=== PATIENT | female | born 1995 | race Two or more races ===

== ENCOUNTER 2024-11-15 21:30 | Emergency (ER) | payer MEDICAID, SELFPAY ==
--- NOTE | 2024-11-15 21:56 | PD.EDADULT ---
ED General RME/HPI General Chief complaint: Headache Stated complaint: HEADACHE, N/V Time Seen by Provider: 11/15/24 21:42 Arrival date/time: 11/15/24 21:30 RME / HPI RME / HPI narrative: see MDM Related Data Allergies Allergy/AdvReac Type Severity Reaction Status Date / Time No Known Allergies Allergy Verified 03/08/22 06:38 Review of Systems Review of Systems Systems Reviewed: All systems reviewed, normal except as documented ED Exam Narrative Physical exam: Physical Exam GENERAL: NAD, AAOx3, obese HEENT: Moist mucosa. Eyes open, symmetrical, & clear CARDIO: Heart RRR, no obvious murmurs PULM: No noted coughing/dyspnea CTA B/L, no R/W/R GI: Abdomen soft, nondistended, no pain on palpation. BSx4 SKIN/MSK/EXT: No wounds/rashes/edema/amputations, no pain on palpation. Pedal pulses present B/L NEURO: AAOx3, no focal neuro deficits, able to move all 4 extremities Course Course Course Narrative: 2199 ordered CBC, CMP, 1L NS ordered Quality Measures none Orders Category Date Time Status EKG (ED ONLY) *Do not use* NOW Care 11/15/24 22:03 Completed Insert IV NOW Care 11/15/24 21:53 Active EKG (ED Only) Stat Exams 11/15/24 22:03 Draft CBC [CBC] Stat Lab 11/15/24 22:25 Completed CMP [Comprehensive Metabolic Panel] Stat Lab 11/15/24 22:25 Completed Sodium Chloride 0.9% 1000 ml [Ns] 1,000 ml Med 11/15/24 21:53 Discontinued IV 999 mls/hr Vital Signs Vital signs: Vital Signs Temperature 98.0 F 11/15/24 22:08 Pulse Rate 73 11/15/24 22:08 Respiratory Rate 16 11/15/24 22:08 Blood Pressure 147/92 H 11/15/24 22:08 Pulse Oximetry (%) 98 11/15/24 22:08 Oxygen Delivery Method Room Air 11/15/24 22:08 Discharge Plan Plan Patient Disposition: HOME (Self Care) Prescriptions/Referrals Referrals: No Primary/Family,Physician [Primary Care Provider] - In 1 week Problem List Clinical Impression: Dehydration Patient/Caregiver Discharge Instructions Additional Instructions: Follow up with your PCP within 1 week of discharge Should any symptoms recur or worsen patient is instructed to return to the ED. Print Language: Mauritian Stand Alone Forms: [facility] Info., Patient Portal Info Letter MDM Narrative MDM hospital course: 29 y/o F with PMHx of pre-diabetes who presented to the ED due to new onset headaches. She describes them as frontal but later moved to occipital area rated as a 9/10. She endorses 4x episodes of nonbloody vomiting mostly food contents and saliva at this point. She states she has tried paracetamol twice, ibuprofen and diclofenac with no relief. She also states that she started her period today with the onset of the headaches as well as some chills. She denies fever, shortness of breath, dizziness, loss of conciousness, abdominal pain, recent travel, sick contacts. Labs ordered, IVF bolus orededred IVF administered states feeling relief of symptoms and no further complaints Patient feeels comfortable going home. All questions and concerns answered patients is safe to discharge. Clinical Information Provided by patient Medical Records Reviewed None Meds/Rx Considered, not Ordered None Labs/Rad/Tests considered, not Ordered None Chronic Illness/Social Conditions which may negatively complicate care or outcome(s)-explain: None or not applicable EKG EKG Interpretation narrative: sinus rhtyhm no ST elevations. Lab Interpretation Lab(s) interpretation(s): CBC unremarkable, CMP unremarkable Imaging Imaging interpretation: none Medication Administration(s) Medication Administration History Discontinued Medications Sodium Chloride (Ns) 1,000 mls @ 999 mls/hr IV .Q1H1M ONE Stop: 11/15/24 22:53 Last Infusion: 11/15/24 23:34 Dose: Infused Documented By: Admin: 11/15/24 22:34 Dose: 999 mls/hr Documented By: GONSALO Dispositon Disposition: Discharge Home
--- NOTE | 2024-11-15 22:03 | EKG_ITS ---
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
[2024-11-15 22:08] VITALS: BP 147/92; PULSE 73; RESP 16; TEMP 36.7; O2SAT 98
[2024-11-15 22:31] LABS: Basophils # (Auto) 0.0 Thou/mm3 (0.0-0.2); Basophils % (Auto) 0 % (0-2.5); Eosinophils # (Auto) 0.1 Thou/mm3 (0.0-0.5); Eosinophils % (Auto) 2 % (0-10); Hematocrit 37.6 % (36.0-46.0); Hemoglobin 13.0 g/dL (12.0-16.0); Immature Granulocytes Auto 0.04 Thou/mm3 (0.00-0.00); Lymphocytes # (Auto) 2.2 Thou/mm3 (1.0-4.8); Lymphocytes % (Auto) 26 % (10-50); Mean Corpuscular HGB Conc 34.6 g/dl (31.0-37.0); Mean Corpuscular Hemoglobin 27.6 pg (25.0-35.0); Mean Corpuscular Volume 80 fL (80-100); Monocytes # (Auto) 0.5 Thou/mm3 (0.0-0.8); Monocytes % (Auto) 6 % (0-12); Neutrophils # (Auto) 5.7 Thou/mm3 (1.8-7.7); Neutrophils % (Auto) 66 % (37-80); Nucleated Red Blood Cell # 0.00 Thou/mm3 (0.00-0.00); Nucleated Red Blood Cell % 0 /100 WBC (0); Platelet Count 270 Thou/mm3 (140-440); RDW Standard Deviation 36.8 fL (36.4-46.3); Red Blood Count 4.71 Miln/mm3 (4.00-5.20); White Blood Count 8.7 Thou/mm3 (3.6-11.0)
[2024-11-15] MEDS: SODIUM CHLORIDE 0.9% 1000 ML 1,000 ML 999 ML IV (22:34)
[2024-11-15 23:06] LABS: Alanine Aminotransferase 27 U/L (10-49); Albumin, Serum 4.5 gm/dL (3.5-5.0); Albumin/Globulin Ratio 1.6 (1.2-2.2); Alkaline Phosphatase 97 U/L (46-116); Anion Gap 9 (7-16); Aspartate Amino Transferase 25 U/L (0-34); BUN/Creatinine Ratio 11 Ratio (12-20); Bilirubin,Total 0.3 mg/dL (0.3-1.2); Blood Urea Nitrogen 9 mg/dL (9-23); Calcium 10.1 mg/dL (8.3-10.6); Calcium (Corrected) 10.1 mg/dL (8.5-10.1); Carbon Dioxide 26.9 mMol/L (20.0-31.0); Chloride 106 mMol/L (98-107); Creatinine (Component) 0.8 mg/dL (0.6-1.3); Globulin 2.9 gm/dL (2.3-3.5); Glucose 114 mg/dL (74-106); Osmolality,Calculated 282 (275-295); Potassium 4.0 mMol/L (3.4-5.1); Sodium 142 mMol/L (136-145); Total Protein 7.4 gm/dL (5.7-8.2); eGFR > 60 See Note
[2024-11-15 23:49] VITALS: BP 138/94; PULSE 65; RESP 16; TEMP 36.7; O2SAT 98
== END 2024-11-16 00:45 | disposition home or self-care (01) ==
PROVIDERS: Emergency Provider Student in an Organized Health Care Education/Training Program
DX: E86.0 Dehydration (principal)
CPT/HCPCS: 36415; 80053; 85025; 96360; 99284; J7030